=== PATIENT | male | born 1970 | race Caucasian/White ===

== ENCOUNTER 2016-10-26 21:08 | Emergency (ER) | payer OTHER ==
[2016-10-26 21:13] VITALS: TEMP 98.1; O2SAT 95
[2016-10-26] MEDS ORDERED: fentaNYL 100 MCG/2 ML INJ ONE (21:29)
[2016-10-26] MEDS ORDERED: fentaNYL 100 MCG/2 ML INJ IVP ONE (21:42)
[2016-10-26] MEDS ORDERED: KETOROLAC 15 MG/1 ML SDV IVP ONE (22:14)
[2016-10-26] MEDS ORDERED: KETOROLAC 15 MG/1 ML SDV ONE (22:14)
[2016-10-26] MEDS ORDERED: HYDROCODONE/APAP 5/325 TAB ONE (22:14)
[2016-10-26] MEDS ORDERED: HYDROCOD/APAP 5/325 PREPACK#6 BTL TAKEHOME ONE ×2 (22:14)
[2016-10-26] MEDS ORDERED: HYDROCODONE/APAP 5/325 TAB PO ONE (22:14)
--- NOTE | 2016-10-26 22:18 | EDPHY ---
H & P Stated Complaint: Left shoulder injury Source: Patient Exam Limitations: No limitations - Personal History Current Tetanus/Diphtheria Vaccine: Yes Current Tetanus Diphtheria and Acellular Pertussis (TDAP): Yes - Medical/Surgical History Hx Asthma: No Hx Chronic Respiratory Disease: No Hx Diabetes: No Hx Cardiac Disease: No Hx Renal Disease: No Hx Cirrhosis: No Hx Alcoholism: No Hx HIV/AIDS: No Hx Splenectomy or Spleen Trauma: No - Social History Smoking Status: Never smoked Time Seen by Provider: 10/26/16 21:15 HPI/ROS: CHIEF COMPLAINT: left shoulder pain HISTORY OF PRESENT ILLNESS: 46-year-old [id number] male presents emergency department complaining of left shoulder pain. Patient was at work today when he was lifting a generator into a truck he when he felt a pop and has had severe pain in his left shoulder. Patient states earlier in the day he lifted a manhole and felt a twinge in his shoulder in the same place. Patient reports he had numbness and tingling in his fingers earlier which is gone now. He denies previous injury to this shoulder, no elbow pain, no neck pain. Pain worsens with movement. REVIEW OF SYSTEMS: A comprehensive 10 point review of systems is otherwise negative aside from elements mentioned in the history of present illness. (Elodia Rader) - Physical Exam Exam: GEN: Awake, alert, oriented, no acute distress RESP: nl resp effort MSK: Left shoulder decreased range of motion due to pain, no obvious swelling or deformity, diffuse tenderness to palpation throughout, left elbow with no tenderness, left wrist with no tenderness, 2+ radial pulses, sensation intact to light touch SKIN: No rash or break in skin. (Elodia Rader) Constitutional: Initial Vital Signs Temperature (C) 36.7 C 10/26/16 21:11 Heart Rate 110 H 10/26/16 21:11 Respiratory Rate 18 10/26/16 21:11 Blood Pressure 159/100 H 10/26/16 21:11 O2 Sat (%) 95 10/26/16 21:11 O2 Delivery Mode Room Air Allergies/Adverse Reactions: No Known Allergies Allergy (Unverified 10/26/16 21:11) Home Medications: Medication Instructions Recorded Hydrocodone/APAP 5/325 [Blackstock 1 tab PO Q4H PRN #7 tab 10/26/16 5/325] Medical Decision Making - Diagnostics Imaging: Left shoulder x-ray independently reviewed by me- No fracture or dislocation (Elodia Rader) ED Course/Re-evaluation: I did not see this patient while he was in the emergency department. However his care was discussed with PA while the patient was in the department. I agree with treatment plan and management (Charly Fay) - Data Points Medications Given: Discontinued Medications Hydrocodone Bitart/Acetaminophen (Blackstock 5/325mg Prepack#6) 1 btl TAKEHOME EDNOW ONE Stop: 10/26/16 22:15 Last Admin: 10/26/16 22:19 Dose: 1 btl Hydrocodone Bitart/Acetaminophen (Blackstock 5/325) 2 tab PO EDNOW ONE Stop: 10/26/16 22:15 Last Admin: 10/26/16 22:19 Dose: 2 tab Fentanyl (Sublimaze) 100 mcg IVP EDNOW ONE Stop: 10/26/16 21:43 Last Admin: 10/26/16 21:49 Dose: 100 mcg Ketorolac Tromethamine (Toradol) 15 mg IVP EDNOW ONE Stop: 10/26/16 22:15 Last Admin: 10/26/16 22:19 Dose: 15 mg Departure - Departure Disposition: Home, Routine, Self-Care Clinical Impression: Sprain of left shoulder Qualifiers: Encounter type: initial encounter Shoulder sprain type: unspecified sprain Qualified Code(s): S43.402A - Unspecified sprain of left shoulder joint, initial encounter Condition: Good Instructions: Hydrocodone/Acetaminophen (By mouth), Shoulder Sprain (ED) Additional Instructions: Rest, ice, take 600 mg of ibuprofen every 8 hours with food, take 1 Blackstock every 4-6 hours as needed for severe pain. Wear the sling for comfort. Follow up with an orthopedist at 1st available appointment. Return to the emergency department for worsening symptoms, discoloration of your hand, numbness or tingling in your arm, pain that is not controlled. Referrals: Mario Zacarias MD [Medical Doctor] - As per Instructions (Orthopedist on-call) Stand Alone Forms: Work Comp Follow Up Prescriptions: Hydrocodone/APAP 5/325 [Blackstock 5/325] 1 tab PO Q4H PRN #7 tab PRN Reason: Pain, Moderate
[2016-10-26 22:59] VITALS: BP 144/94; PULSE 93; RESP 16
== END 2016-10-26 22:57 | disposition home or self-care (01) ==
DX: S43.402A Unspecified sprain of left shoulder joint, initial encounter (principal); X50.0XXA Overexertion from strenuous movement or load, initial encounter; Y92.69 Other specified industrial and construction area as the place of occurrence of the external cause; Y93.89 Activity, other specified
CPT/HCPCS: 96374; A4565; J1885; J3010

== ENCOUNTER → 2017-05-30 | Outpatient (CLI) | payer OTHER | LOC: FIMAGING 16:44 | PROVIDERS: ATTEND Orthopaedic Surgery Sports Medicine | DX: M25.512 Pain in left shoulder (principal); M79.89 Other specified soft tissue disorders; R22.32 Localized swelling, mass and lump, left upper limb ==